=== PATIENT | female | born 1945 | race Caucasian/White ===

== ENCOUNTER 2019-02-15 06:03 | Day surgery (SDC) | payer MEDICARE, OTHER ==
[~2019-02-15] VITALS: Ht 165.1 cm; Wt 79.4 kg
[~2019-02-15 06:03] MED LIST: ASPIRIN EC325 MG PO; LEVOTHYROXIN112 MC1 PO; LIPITOR40 M1 PO; LOPRESSOR25 MG PO; LOSARTAN POT25 MG PO; LOSARTAN/HCT1 TA1 PO; SUPER C PO; TRAMADOL HCL50 MG PO; TYLENOL 500MG TAB PO; VITAMIN D3400 UNI2 PO; ZESTRIL10 M1 PO
[2019-02-15 08:04] VITALS: BP 117/58
== END 2019-02-15 08:20 | disposition home or self-care (01) ==
LOC: ENDO 06:03 → ORM 07:45 → ENDO 08:20
PROVIDERS: ATTEND Surgery
PROC: 0DBP8ZX Excision of Rectum, Via Natural or Artificial Opening Endoscopic, Diagnostic (ICD-10-PCS; principal; 2019-02-15)
PROC: 0DBN8ZX Excision of Sigmoid Colon, Via Natural or Artificial Opening Endoscopic, Diagnostic (ICD-10-PCS; 2019-02-15)
DX: K50.10 Crohn's disease of large intestine without complications (principal)

== ENCOUNTER 2019-03-05 09:40 | Emergency (ER) | payer MEDICARE, OTHER ==
[~2019-03-05] VITALS: Ht 165.1 cm; Wt 77.0 kg
[2019-03-05] MEDS ORDERED: VITAMIN D31000 UNI1 PO (10:10)
[2019-03-05] MEDS ORDERED: LOSARTAN POT50 MG PO (10:13)
[2019-03-05] MEDS ORDERED: PREDNISONE20 MG PO (10:13)
[2019-03-05 10:32] LABS: HEMOGLOBIN 12.2 g/dl (12.0-16.0); MEAN CELL VOLUME 94.9 fL CALC (80.0-100.0); MEAN CORPUSCULAR HGB 29.7 pG CALC (26.0-32.0); MEAN CORPUSCULAR HGB CONC 31.3 g/L CALC (32.0-36.0); NEUT# 11.66 thou/uL (2.00-7.15); RED BLOOD COUNT 4.11 mill/uL (4.20-5.60); RED CELL DISTRI WIDTH 13.8 % (11.5-15.5)
[2019-03-05 10:49] LABS: ANION GAP 12 (6-22 (CALC)); BUN 20 mg/dL (8-23); BUN/CREATININE RATIO 34 (12-20 (CALC)); CARBON DIOXIDE 28 mmol/l (22-30); CHLORIDE 105 mmol/l (95-108); CREATININE 0.6 mg/dL (0.5-1.0); GFR > 60 ML/MIN (>=60 (CALC)); GFR FOR AFR.AMER. > 60 ML/MIN (>=60 (CALC)); POTASSIUM 5.1 mmol/l (3.5-5.1); SODIUM 140 mmol/l (137-146)
[2019-03-05] MEDS ORDERED: HYZAAR1 TAB PO (11:42)
[2019-03-05 11:57] VITALS: BP 179/71
== END 2019-03-05 12:25 | disposition home or self-care (01) ==
LOC: ED 09:40
PROVIDERS: Family Medicine
DX: I10 Essential (primary) hypertension (principal); R51 Headache; Z86.73 Personal history of transient ischemic attack (TIA), and cerebral infarction without residual deficits; E03.9 Hypothyroidism, unspecified

== ENCOUNTER 2019-04-12 12:11 | Observation (INO) | payer MEDICARE, OTHER ==
[~2019-04-12] VITALS: Ht 160 cm; Wt 74.4 kg
[~2019-04-12 12:11] MED LIST changes: +HYZAAR1 TAB PO; +LOSARTAN POT50 MG PO; +PREDNISONE20 MG PO; +VITAMIN D31000 UNI1 PO
[2019-04-12] MEDS ORDERED: SLOW-MAG PO (13:11)
[2019-04-12] MEDS ORDERED: VITAMIN C1000 MG PO (13:11)
[2019-04-12] MEDS ORDERED: NORVASC5 M1 PO (13:12)
[2019-04-12 13:21] LABS: HEMATOCRIT 39.4 % (37.0-47.0); HEMOGLOBIN 12.6 g/dl (12.0-16.0); IMMATURE GRANULOCYTES 0.5 % (0.0-5.0); MEAN CORPUSCULAR HGB 30.1 pG CALC (26.0-32.0); NEUT# 7.55 thou/uL (2.00-7.15); RED BLOOD COUNT 4.19 mill/uL (4.20-5.60); RED CELL DISTRI WIDTH 14.6 % (11.5-15.5)
[2019-04-12 13:37] LABS: ALBUMIN 3.8 g/dL (3.2-5.0); ALKALINE PHOSPHATASE 58 u/l (38-126); ANION GAP 12 (6-22 (CALC)); BILIRUBIN, TOTAL 0.7 mg/dL (0.0-1.4); BUN 18 mg/dL (8-23); BUN/CREATININE RATIO 26 (12-20 (CALC)); CARBON DIOXIDE 28 mmol/l (22-30); CHLORIDE 105 mmol/l (95-108); CREATININE 0.7 mg/dL (0.5-1.0); GFR > 60 ML/MIN (>=60 (CALC)); GFR FOR AFR.AMER. > 60 ML/MIN (>=60 (CALC)); POTASSIUM 4.4 mmol/l (3.5-5.1); SODIUM 140 mmol/l (137-146); TOTAL PROTEIN 6.4 g/dL (6.3-8.2)
[2019-04-12 13:45] LABS: SGOT/AST 104 u/l (9-36)
[2019-04-12 14:34] LABS: URINE BILIRUBIN - DIPSTICK NEGATIVE (NEGATIVE); URINE BLOOD DIPSTICK NEGATIVE (NEGATIVE); URINE COLOR YELLOW; URINE GLUCOSE - DIPSTICK NEGATIVE (NEGATIVE); URINE KETONE NEGATIVE (NEGATIVE); URINE LEUK ESTERASE NEGATIVE (NEGATIVE); URINE NITRITE - DIPSTICK NEGATIVE (Negative); URINE PH 6.5 (4.5-8.0); URINE PROTEIN - DIPSTICK NEGATIVE (NEG-TRACE); URINE SPECIFIC GRAVITY 1.015; URINE UROBILINOGEN - DIPSTICK 0.2 E.U./dL (0.2)
[2019-04-12 16:49] VITALS: BP 186/74
[2019-04-12] MEDS ORDERED: CIPROFLOXACIN500 M1 PO (16:52)
[2019-04-12 17:50] VITALS: BP 171/69
[2019-04-12 18:26] VITALS: BP 127/61
[2019-04-12 19:55] VITALS: BP 149/53
[2019-04-13 00:06] VITALS: BP 101/56
[2019-04-13 04:00] VITALS: BP 145/59
[2019-04-13 07:53] VITALS: BP 149/67
[2019-04-13 16:30] VITALS: BP 129/58
[2019-04-13 19:56] VITALS: BP 139/52
[2019-04-14 03:52] VITALS: BP 132/67
[2019-04-14 05:19] LABS: HEMATOCRIT 40.9 % (37.0-47.0); HEMOGLOBIN 13.7 g/dl (12.0-16.0); IMMATURE GRANULOCYTES 0.6 % (0.0-5.0); MEAN CELL VOLUME 91.7 fL CALC (80.0-100.0); MEAN CORPUSCULAR HGB 30.7 pG CALC (26.0-32.0); MEAN CORPUSCULAR HGB CONC 33.5 g/L CALC (32.0-36.0); NEUT# 5.41 thou/uL (2.00-7.15); RED BLOOD COUNT 4.46 mill/uL (4.20-5.60); RED CELL DISTRI WIDTH 14.7 % (11.5-15.5)
[2019-04-14 05:26] LABS: ALBUMIN 3.4 g/dL (3.2-5.0); ALKALINE PHOSPHATASE 58 u/l (38-126); BILIRUBIN, TOTAL 0.8 mg/dL (0.0-1.4); BUN 21 mg/dL (8-23); BUN/CREATININE RATIO 30 (12-20 (CALC)); CARBON DIOXIDE 30 mmol/l (22-30); CHLORIDE 104 mmol/l (95-108); CREATININE 0.7 mg/dL (0.5-1.0); GFR > 60 ML/MIN (>=60 (CALC)); GFR FOR AFR.AMER. > 60 ML/MIN (>=60 (CALC)); MAGNESIUM 1.9 mg/dL (1.6-2.3); SGOT/AST 68 u/l (9-36); SODIUM 139 mmol/l (137-146); TOTAL PROTEIN 5.8 g/dL (6.3-8.2)
[2019-04-14 05:38] LABS: ANION GAP 9 (6-22 (CALC)); POTASSIUM 3.5 mmol/l (3.5-5.1)
[2019-04-14 08:06] VITALS: BP 135/50
[2019-04-14 09:44] VITALS: BP 135/50
[2019-04-14] MEDS ORDERED: MIRTAZAPINE15 M1 PO (11:18)
== END 2019-04-14 12:18 | disposition home or self-care (01) ==
LOC: ED 12:11 → ED-I 15:31 → ED 15:55 → MS2 16:05
PROVIDERS: Emergency Medicine; ADMIT Internal Medicine Nephrology; ATTEND Internal Medicine Nephrology
DX: R06.02 Shortness of breath (principal); R53.1 Weakness; F32.9 Major depressive disorder, single episode, unspecified; I10 Essential (primary) hypertension; G89.29 Other chronic pain; E56.0 Deficiency of vitamin E; E03.9 Hypothyroidism, unspecified; M81.0 Age-related osteoporosis without current pathological fracture; Z95.3 Presence of xenogenic heart valve; Z86.73 Personal history of transient ischemic attack (TIA), and cerebral infarction without residual deficits; Z95.1 Presence of aortocoronary bypass graft

== ENCOUNTER 2020-08-24 14:12 | Emergency (ER) | payer MEDICARE, OTHER ==
[~2020-08-24] VITALS: Ht 162.6 cm; Wt 75.0 kg
[~2020-08-24 14:12] MED LIST changes: +ASPIRIN 81 LOW81 MG PO; -ASPIRIN EC325 MG PO; +CIPROFLOXACIN500 M1 PO; +MIRTAZAPINE15 M1 PO; +NORVASC5 M1 PO; +SLOW-MAG PO; +VITAMIN C1000 MG PO
[2020-08-24] MEDS ORDERED: LOSARTAN/HCT1 TA1 PO (14:38)
[2020-08-24 15:02] LABS: HEMATOCRIT 41.6 % (37.0-47.0); HEMOGLOBIN 13.2 g/dl (12.0-16.0); IMMATURE GRANULOCYTES 0.8 % (0.0-5.0); MEAN CELL VOLUME 93.5 fL CALC (80.0-100.0); MEAN CORPUSCULAR HGB 29.7 pG CALC (26.0-32.0); MEAN CORPUSCULAR HGB CONC 31.7 g/dL CAL (32.0-36.0); NEUT# 9.81 thou/uL (2.00-7.15); RED BLOOD COUNT 4.45 mill/uL (4.20-5.60); RED CELL DISTRI WIDTH 13.8 % (11.5-15.5)
[2020-08-24 15:03] LABS: URINE BILIRUBIN - DIPSTICK NEGATIVE (NEGATIVE); URINE BLOOD DIPSTICK NEGATIVE (NEGATIVE); URINE COLOR YELLOW; URINE GLUCOSE - DIPSTICK NEGATIVE (NEGATIVE); URINE KETONE NEGATIVE (NEGATIVE); URINE LEUK ESTERASE NEGATIVE (NEGATIVE); URINE NITRITE - DIPSTICK NEGATIVE (Negative); URINE PROTEIN - DIPSTICK NEGATIVE (NEG-TRACE); URINE UROBILINOGEN - DIPSTICK 0.2 E.U./dL (0.2)
[2020-08-24 15:25] LABS: D-DIMER 1.01 mg/L (0.19-0.60)
[2020-08-24 15:28] LABS: ALBUMIN 3.7 g/dL (3.2-5.0); ALKALINE PHOSPHATASE 71 u/l (38-126); ANION GAP 10 (6-22 (CALC)); BUN 29 mg/dL (8-23); BUN/CREATININE RATIO 43 (12-20 (CALC)); CARBON DIOXIDE 28 mmol/l (22-30); CHLORIDE 102 mmol/l (95-108); CREATININE 0.7 mg/dL (0.5-1.0); ETHYL ALCOHOL 0 mg/dl (0-30); GFR > 60 ML/MIN (>=60 (CALC)); GFR FOR AFR.AMER. > 60 ML/MIN (>=60 (CALC)); MAGNESIUM 2.2 mg/dL (1.6-2.3); POTASSIUM 3.7 mmol/l (3.5-5.1); SGOT/AST 110 u/l (9-36); SODIUM 137 mmol/l (137-146); TOTAL PROTEIN 6.3 g/dL (6.3-8.2)
[2020-08-24 15:34] LABS: ACT PARTIAL THROMBO TIME 22.6 SECONDS (20.0-32.5); PROTHROMBIN TIME 9.9 SECONDS (9.0-12.5)
[2020-08-24 15:55] LABS: BILIRUBIN, TOTAL 1.2 mg/dL (0.0-1.4); CPK 2465 u/l (30-165)
[2020-08-24 15:56] LABS: MYOGLOBIN 3256 ng/mL (0 - 62)
[2020-08-24 15:58] LABS: TSH, 3RD GENERATION 2.34 uIU/mL (0.47 - 4.68)
[2020-08-24 17:21] VITALS: BP 162/69
== END 2020-08-24 17:23 | disposition short-term general hospital (02) ==
LOC: ED 14:12
DX: I21.4 Non-ST elevation (NSTEMI) myocardial infarction (principal); I16.0 Hypertensive urgency; I10 Essential (primary) hypertension; E03.9 Hypothyroidism, unspecified; Z86.73 Personal history of transient ischemic attack (TIA), and cerebral infarction without residual deficits; Z95.2 Presence of prosthetic heart valve